=== PATIENT | female | born 1985 | race Caucasian/White ===

== ENCOUNTER 2017-02-08 12:07 | Emergency (ER) | payer SELFPAY ==
[~2017-02-08] VITALS: Ht 172.7 cm; Wt 122.7 kg
[2017-02-08] MEDS ORDERED: SUBOXONE 8 MG-1 EAC1 SL (12:25)
== END 2017-02-08 12:29 | disposition home or self-care (01) ==
LOC: ED 12:07
DX: Z00.8 Encounter for other general examination (principal)

== ENCOUNTER 2017-04-20 11:50 | Emergency (ER) | payer OTHER ==
[~2017-04-20] VITALS: Ht 172.7 cm; Wt 122.7 kg
[~2017-04-20 11:50] MED LIST: SUBOXONE 8 MG-1 EAC1 SL
[2017-04-20] MEDS ORDERED: CLONIDINE HCL0.1 MG PO (11:59)
[2017-04-20] MEDS ORDERED: KEFLEX500 MG PO (14:04)
== END 2017-04-20 14:54 | disposition home or self-care (01) ==
LOC: ED 11:50
PROC: 0H99XZZ Drainage of Perineum Skin, External Approach (ICD-10-PCS; principal; 2017-04-20)
DX: L02.215 Cutaneous abscess of perineum (principal); F17.200 Nicotine dependence, unspecified, uncomplicated; Z79.899 Other long term (current) drug therapy
CPT/HCPCS: 10060; 80053; 85025; 96361; 96374; 96375; 99152; 99283; J0690; J1170; J2704; J7030

== ENCOUNTER 2017-06-18 16:14 | Emergency (ER) | payer OTHER ==
[~2017-06-18] VITALS: Ht 172.7 cm; Wt 122.0 kg
[~2017-06-18 16:14] MED LIST changes: +CLONIDINE HCL0.1 MG PO; +KEFLEX500 MG PO
== END 2017-06-18 18:24 | disposition home or self-care (01) ==
LOC: ED 16:14
DX: R10.30 Lower abdominal pain, unspecified (principal); F17.200 Nicotine dependence, unspecified, uncomplicated; Z79.891 Long term (current) use of opiate analgesic; Z90.49 Acquired absence of other specified parts of digestive tract
CPT/HCPCS: 74177; 80053; 81001; 83690; 84703; 85025; 96374; 96375; 99284; J1885; J2270; J2405; J7030; Q9967

== ENCOUNTER 2018-09-12 10:16 | Emergency (ER) | payer OTHER ==
[~2018-09-12] VITALS: Ht 172.7 cm; Wt 121.6 kg
[~2018-09-12 10:16] MED LIST changes: +SUBOXONE 4 MG-1 EACH SL
--- OUTSIDE RECORDS SUMMARY | 2018-09-12 10:18 | XMS ---
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 E.Sergio VISIT COUNT (12 MO.) 3 BRYAN Jason TOTAL 3 NOTE: Visits indicate total known visits. 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
== END 2018-09-12 12:51 | disposition home or self-care (01) ==
LOC: ED 10:16
DX: G43.909 Migraine, unspecified, not intractable, without status migrainosus (principal); Z87.891 Personal history of nicotine dependence; Z79.899 Other long term (current) drug therapy
CPT/HCPCS: 96361; 96374; 96375; 99283-25; J0780; J1100; J1200; J1885; J7030

== ENCOUNTER 2018-10-02 17:38 | Emergency (ER) | payer OTHER ==
[~2018-10-02] VITALS: Ht 172.7 cm; Wt 121.6 kg
--- OUTSIDE RECORDS SUMMARY | ~2018-10-02 | XMS | Encounter Summary ---
Demographics + + + | Address | [address] | | | [place] [address] | + + + | Home Phone | | + + + | Preferred Language | Unknown | + + + | Marital Status | Unknown | + + + | Jew Affiliation | Unknown | + + + | Race | Unknown | + + + | Ethnic Group | Unknown | + + + Author + + + | Author | [facility] | | | and [place] | + + + | Organization | [facility] | | | and [place] | + + + | Address | Unknown | + + + | Phone | Unavailable | + + + Care Team Providers + +------+ + | Care Type Disk Quality Control Supervisor Name | Role | Phone | + [...] + + | 08/30/ | Telephone | [facility] | [facility], | Records Request | | 2018 | | GASTROENTEROLOGY | YUSRA Cooper [address] | | | | | [address] [facility] | [place] | | | | | [address] [place], [place] | [place] | | | | | [address] | [address] | | | | | [phone] | | | +--------+ + + + [...] + +---------+ + | Alcohol Use | Drinks/We | oz/Week | Comments | | | ek | | | + + +---------+ + | No [...]
--- OUTSIDE RECORDS SUMMARY | ~2018-10-02 | XMS | Encounter Summary ---
Demographics + + + | Address | [address] | | | [place] [address] | + + + | Home Phone | | + + + | Preferred Language | Unknown | + + + | Marital Status | Unknown | + + + | Jew Affiliation | Unknown | + + + | Race | Unknown | + + + | Ethnic Group | Unknown | + + + Author + + + | Author | [facility] | | | and [place] | + + + | Organization | [facility] | | | and [place] | + + + | Address | Unknown | + + + | Phone | Unavailable | + + + Care Team Providers + +------+ + | Care Women'S Ministry Director Name | Role | Phone | + +------+ + | Rachel Morgan MD | PCP | | + +------+ + Encounter Details +--------+ + + + + | Date | Type | Department | Care Team | Description | +--------+ + + + + | 08/12/ | Abstract | [facility] | Macaren[place], | | | 2018 | | GASTROENTEROLOGY | MD [address] | | | | | [address] [facility] | [address] | | | | | [address] [place], [place] | [place] [address] | | | | | [address] | | | | | | [phone] | | | +--------+ + + + + Social History + +-------+ +--------+------+ | Tobacco Use | Types | Packs/Day | Years | Date | | | | | Used | | + +-------+ +--------+------+ | Current Every Day | | 0.5 | | | | Smoker | | | | | + +-------+ +--------+------+ + + | Comments: quit in 2011 currently vapes with nicotine trying to quit [...]
--- OUTSIDE RECORDS SUMMARY | ~2018-10-02 | XMS | Encounter Summary ---
Demographics + + + | Address | [address] | | | [place] [address] | + + + | Home Phone | | + + + | Preferred Language | Unknown | + + + | Marital Status | Unknown | + + + | Taoist Affiliation | Unknown | + + + | Race | Unknown | + + + | Ethnic Group | Unknown | + + + Author + + + | Author | [facility] | | | and [place] | + + + | Organization | [facility] | | | and [place] | + + + | Address | Unknown | + + + | Phone | Unavailable | + + + Care Team Providers + +------+ + | Care Biofuels Research Scientist Name | Role | Phone | + +------+ + | Rachel Morgan MD | PCP | | + +------+ + Encounter Details +--------+ + + + + | Date | Type | Department | Care Team | Description | +--------+ + + + + | 07/27/ | Documentati | [facility] | Joseluis Zamudio | | | 2018 | on | GASTROENTEROLOGY | MD Haroon [address] | | | | | [address] [facility] | [address] [facility] | | | | | [address] [place] | [place] [address] | | | | | [address] | [phone] | | | | | [phone] | | | +--------+ + + + [...]
--- OUTSIDE RECORDS SUMMARY | ~2018-10-02 | XMS | Encounter Summary ---
Demographics + + + | Address | [address] | | | [place] [address] | + + + | Home Phone | | + + + | Preferred Language | Unknown | + + + | Marital Status | Unknown | + + + | Religion Affiliation | Unknown | + + + | Race | Unknown | + + + | Ethnic Group | Unknown | + + + Author + + + | Author | [facility] | | | and [place] | + + + | Organization | and [facility] | | | and [place] | + + + | Address | Unknown | + + + | Phone | Unavailable | + + + Care Team Providers + +------+ + | Care Waxer Operator Name | Role | Phone | + +------+ + | Rachel Morgan MD | PCP | | + +------+ + Encounter Details +--------+ + + + + | Date | Type | Department | Care Team | Description | +--------+ + + + + | 07/27/ | Documentati | [facility] | Joseluis Zamudio | | | 2018 | on | GASTROENTEROLOGY | MD Haroon [address] | | | | | [address] [place] | [address] [facility] | | | | | [address] [place] | [place] [address] | | | | | [address] | [phone] | | | | | [phone] | | | +--------+ + + + [...]
--- OUTSIDE RECORDS SUMMARY | ~2018-10-02 | XMS | Encounter Summary ---
Demographics + + + | Address | [address] | | | [place] [address] | + + + | Home Phone | | + + + | Preferred Language | Unknown | + + + | Marital Status | Unknown | + + + | Jainism Affiliation | Unknown | + + + | Race | Unknown | + + + | Ethnic Group | Unknown | + + + Author + + + | Author | [facility] | | | and [place] | + + + | Organization | [facility] | | | and [place] | + + + | Address | Unknown | + + + | Phone | Unavailable | + + + Care Team Providers + +------+ + | Care Shelter Advocate Name | Role | Phone | + +------+ + | Rachel Morgan MD | PCP | | + +------+ + Encounter Details +--------+ + + + + | Date | Type | Department | Care Team | Description | +--------+ + + + + | 08/12/ | Abstract | [facility] | Macarena, | | | 2018 | | GASTROENTEROLOGY | MD [address] | | | | | [address] [facility] | [address] | | | | | [address] [place], [place] | [place] [address] | | | | | [address] | | | | | | [phone] | | | +--------+ + + + [...]
--- OUTSIDE RECORDS SUMMARY | ~2018-10-02 | XMS | Encounter Summary ---
Demographics + + + | Address | [address] | | | [place] [address] | + + + | Home Phone | | + + + | Preferred Language | Unknown | + + + | Marital Status | Unknown | + + + | Mosque Affiliation | Unknown | + + + | Race | Unknown | + + + | Ethnic Group | Unknown | + + + Author + + + | Author | [facility] | | | and [place] | + + + | Organization | [facility] | | | and [place] | + + + | Address | Unknown | + + + | Phone | Unavailable | + + + Care Team Providers + +------+ + | Care Polymer Materials Consultant Name | Role | Phone | + [...] + + | 08/30/ | Telephone | [facility] | [facility], | Records Request | | 2018 | | GASTROENTEROLOGY | YUSRA Cooper [address] | | | | | [address] [facility] | [place] | | | | | [address] [place], [place] | [place] | | | | | [address] | [id number] | | | | | [phone] | | | +--------+ + + + [...]
--- OUTSIDE RECORDS SUMMARY | ~2018-10-02 | XMS | Clinical Summary ---
Demographics + + + | Address | [address] | | | [place] [address] | + + + | Home Phone | | + + + | Preferred Language | Unknown | + + + | Marital Status | Unknown | + + + | Confucianism Affiliation | Unknown | + + + | Race | Unknown | + + + | Ethnic Group | Unknown | + + + Author + + + | Author | [facility] | | | and [place] | + + + | Organization | [facility] | | | and [place] | + + + | Address | Unknown | + + + | Phone | Unavailable | + + + Care Team Providers + +------+ + | Care Linen Worker Name | Role | Phone | + +------+ + | Rachel Morgan MD | PP | | + +------+ + Allergies No [...] + +---------+------+------+-------+ Active Problems Not on file Encounters +--------+ + + + + | Date | Type | Specialty | Care Team | Description | +--------+ + + + + | 08/30/ | Telephone | | Camilo Sotelo Request | | 2018 | | | YUSRA Cooper | | +--------+ + + + + | 08/12/ | Abstract | | Macarena, | | | 2018 | | | MD Tico | | +--------+ + + + + | 07/27/ | Documentati | | Joseluis Zamudio | | | 2018 | on | | MD Haroon | | +--------+ + + + + from Last 3 Months Family History + + +------+ + | [...] recent travel history available. | + + Plan of Treatment + + + + + | Health Maintenance | Due Date | Last Done | Comments | + + + + + | Vaccine: | | | | | Dtap/Tdap/Td (1 - | 2 | | | | Tdap) | | | | + + + + + | Vaccine: | | | | | Pneumococcal 19-64 | 2 | | | | (PPSV23 only) Medium | | | | | Risk (1 of 1 - | | | | | PPSV23) | | | | + + + + + | Cervical Cancer | | | | | Screening (Pap) | 3 | | | + + + + + | Vaccine: Influenza | | | | | (Season Ended) | 9 | | | + + [...] | [employer] | [employer] | [id number] | | [phone] | | Med[employer] | [...] Person | Self | [birth year] | [address] | | | katie/Luca | | 1984 | [phone] | [place] | | | raji | | | [address] (Home) | [address] | + +--------+ +--------+ + + Advance Directives Patient has advance care planning documents on file. For more information, please contact:[facility] [place] [address]"
--- OUTSIDE RECORDS SUMMARY | ~2018-10-02 | XMS | Clinical Summary ---
Demographics + + + | Address | [address] | | | [place] [address] | + + + | Home Phone | | + + + | Preferred Language | Unknown | + + + | Marital Status | Unknown | + + + | Worship Affiliation | Unknown | + + + | Race | Unknown | + + + | Ethnic Group | Unknown | + + + Author + + + | Author | [facility] | | | and [place] | + + + | Organization | [facility] | | | and [place] | + + + | Address | Unknown | + + + | Phone | Unavailable | + + + Care Team Providers + +------+ + | Care Local Tanker Truck Driver Name | Role | Phone | + [...] | [employer] | [employer] | [id number] | | [phone] | | [employer] | [...] raji | | | 8 (Home) | [address] | + +--------+ +--------+ + + Advance Directives Patient has advance care planning documents on file. For more information, please contact:[facility] and [facility] [place] [address]"
--- OUTSIDE RECORDS SUMMARY | 2018-10-02 17:42 | XMS ---
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 Events No recent Security Events currently on file CRITERIA MET - [facility] - Has Care Guidelines - PDMP - [facility] - 2 Visits in 30 Days CARE PROVIDERS MARYLIN MOLINA Student in an Organized Health Care 09/13/2018-Current Education/Training Program PHONE: [phone] MARK BRAVO Primary Care Current PHONE: Unknown [facility] Date: 09/13/2018 Care Coordination: Currently engaged in mental health services with [facility].\T\nbsp; Please contact [facility] with mental health concerns.\T\nbsp; Ericka: [phone]\T\ nbsp; Dahiana: [phone]. Care History Medical/Surgical 09/13/2018 [facility] - Patient is currently established with [facility]. If patient is seen in the ED during business hours. Please contact CHWs at [facility]. Care Recommendation: This patient has had 5 or more Emergency Department visits in the last 12 months.\T\nbsp; Patient requires education on the scope and purpose of the ED as an acute care provider not a Primary Care Provider and should not be utilized for chronic conditions.\T\nbsp; These are guidelines and the provider should exercise clinical judgment when providing care. E.D. VISIT COUNT (12 MO.) 3 BRYAN Jason TOTAL 3 NOTE: Visits indicate total known visits. 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
[2018-10-02] MEDS ORDERED: ZYPREXA ZYDIS10 MG PO (18:22)
== END 2018-10-02 19:52 | disposition home or self-care (01) ==
LOC: ED 17:38
DX: F41.9 Anxiety disorder, unspecified (principal); F17.200 Nicotine dependence, unspecified, uncomplicated
CPT/HCPCS: 99283

== ENCOUNTER 2019-04-11 09:39 | Emergency (ER) | payer OTHER ==
[~2019-04-11] VITALS: Ht 152.4 cm; Wt 121.6 kg
--- OUTSIDE RECORDS SUMMARY | ~2019-04-11 | XMS | Encounter Summary ---
Demographics + + + | Address | [address] | | | [place] [address] | + + + | Home Phone | | + + + | Preferred Language | Unknown | + + + | Marital Status | Unknown | + + + | Yazidi Affiliation | Unknown | + + + | Race | Unknown | + + + | Ethnic Group | Unknown | + + + Author + + + | Author | [facility] | | | and [place] | + + + | Organization | [facility] | | | and [place] | + + + | Address | Unknown | + + + | Phone | Unavailable | + + + Care Team Providers + +------+ + | Care Forester Silviculture Name | Role | Phone | + +------+ + | Rachel Morgan MD | PCP | | + +------+ + Encounter Details +--------+ + + + + | Date | Type | Department | Care Team | Description | +--------+ + + + + | 07/27/ | Documentati | [facility] | Joseluis Zamudio | | | 2018 | on | GASTROENTEROLOGY | MD [address] | | | | | [address] [facility] | [address] [facility] | | | | | [address] [place] | [place] [address] | | | | | [address] | [phone] | | | | | [phone] | | | +--------+ + + + + Social History + +-------+ +--------+------+ | Tobacco Use | Types | Packs/Day | Years | Date | | | | | Used | | + +-------+ +--------+------+ | Never Assessed | | | | | + +-------+ +--------+------+ + + + | Sex Assigned at | Date Recorded | | | | + + + | Not on file | | + + + + + + + | Job Start Date | Occupation | Industry | + + + + | Not on file | Not on file | Not on file | + + + + + + + + | Travel History | Travel Start | Travel End | + + + + + + | No recent travel history available. | + + documented as of this encounter Plan of Treatment Not on filedocumented as of this encounter Visit Diagnoses Not on filedocumented in this encounter"
--- OUTSIDE RECORDS SUMMARY | ~2019-04-11 | XMS | Encounter Summary ---
Demographics + + + | Address | [address] | | | [place] [address] | + + + | Home Phone | | + + + | Preferred Language | Unknown | + + + | Marital Status | Unknown | + + + | Restorationist Affiliation | Unknown | + + + | Race | Unknown | + + + | Ethnic Group | Unknown | + + + Author + + + | Author | [facility] | | | and [place] | + + + | Organization | [facility] | | | and [place] | + + + | Address | Unknown | + + + | Phone | Unavailable | + + + Care Team Providers + +------+ + | Care Small Business Banking Officer Name | Role | Phone | + +------+ + | Rachel Morgan MD | PCP | | + +------+ + Reason for Visit + + + | Reason | Comments | + + + | Records Request | | + + + Encounter Details +--------+ + + + + | Date | Type | Department | Care Team | Description | +--------+ + + + + | 08/30/ | Telephone | [facility] | [facility], | Records Request | | 2018 | | GASTROENTEROLOGY | YUSRA Cooper [address] | | | | | [address] [facility] | [place], [address] | | | | | [address] [place], [place] | [place] | | | | | [address] | [address] | | | | | [phone] | | | +--------+ + + + + Social History + +-------+ +--------+------+ | Tobacco Use | Types | Packs/Day | Years | Date | | | | | Used | | + +-------+ +--------+------+ | Current Every Day | | 0.5 | | | | Smoker | | | | | + +-------+ +--------+------+ + + | Comments: quit in 2012 currently vapes with nicotine trying to quit that as well. | + + + + +---------+ + | Alcohol Use | Drinks/Week | oz/Week | Comments | + + +---------+ + | No | | | | + + +---------+ + + + + | Sex Assigned at [...]
--- OUTSIDE RECORDS SUMMARY | ~2019-04-11 | XMS | Encounter Summary ---
Demographics + + + | Address | [address] | | | [place] [address] | + + + | Home Phone | | + + + | Preferred Language | Unknown | + + + | Marital Status | Unknown | + + + | Druze Affiliation | Unknown | + + + | Race | Unknown | + + + | Ethnic Group | Unknown | + + + Author + + + | Author | [facility] | | | and [place] | + + + | Organization | [facility] | | | and [place] | + + + | Address | Unknown | + + + | Phone | Unavailable | + + + Care Team Providers + +------+ + | Care Dipper And Baker Name | Role | Phone | + +------+ + | Rachel Morgan MD | PCP | | + +------+ + Encounter Details +--------+ + + + + | Date | Type | Department | Care Team | Description | +--------+ + + + + | 08/12/ | Abstract | [facility] | Macarena, | | | 2018 | | GASTROENTEROLOGY | MD [address] | | | | | [address] [facility] | [address] | | | | | [address] [place], [place] | [place] [address] | | | | | [address] | | | | | | [phone] | | | +--------+ + + + [...]
--- OUTSIDE RECORDS SUMMARY | ~2019-04-11 | XMS | Clinical Summary ---
Demographics + + + | Address | [address] | | | [place] [address] | + + + | Home Phone | | + + + | Preferred Language | Unknown | + + + | Marital Status | Unknown | + + + | Latter Day Affiliation | Unknown | + + + | Race | Unknown | + + + | Ethnic Group | Unknown | + + + Author + + + | Author | [facility] | | | and [place] | + + + | Organization | [facility] | | | and [place] | + + + | Address | Unknown | + + + | Phone | Unavailable | + + + Care Team Providers + +------+ + | Care Crm Architect Name | Role | Phone | + +------+ + | Rachel Morgan MD | PCP | | + +------+ + Allergies No Known Allergies Medications + + + +---------+------+------+-------+ | Medication | Sig | Dispensed | Refills | Star | End | Statu | | | | | | t | Date | s | | | | | | Date | | | + + + +---------+------+------+-------+ | | Place 1 tablet under | | 0 | | | Activ | | buprenorphine-naloxo | the tongue every 24 | | | | | e | | ne (SUBOXONE) 8-2 mg | hours. | | | | | | | SL tablet | | | | | | | + + + +---------+------+------+-------+ | LORazepam (ATIVAN) | Take 1 mg by mouth 3 | | 0 | | | Activ | | 1 mg tablet | times daily. | | | | | e | + + + +---------+------+------+-------+ Active Problems Not on file Family History + + +------+ + | Medical History | Relation | Name | Comments | + + +------+ + | No known problems | Brother | | | + + +------+ + | No known problems | Brother | | | + + +------+ + | No known problems | Brother | | | + + +------+ + | No known problems | Brother | | | + + +------+ + | No known problems | Father | | | + + +------+ + | Heart attack | Mother | | | + + +------+ + | Heart disease | Mother | | | + + +------+ + | Hypertension | Mother | | | + + +------+ + | No known problems | Sister | | | + + +------+ + | No known problems | Sister | | | + + +------+ + | No known problems | Son | | | + + +------+ + | No known problems | Son | | | + + +------+ + + +------+--------+ + | Relation | Name | Status | Comments | + +------+--------+ + | Brother | | Alive | | + +------+--------+ + | Brother | | Alive | | + +------+--------+ + | Brother | | Alive | | + +------+--------+ + | Brother | | Alive | | + +------+--------+ + | Father | | Alive | | + +------+--------+ + | Mother | | Alive | | + +------+--------+ + | Sister | | Alive | | + +------+--------+ + | Sister | | Alive | | + +------+--------+ + | Son | | Alive | | + +------+--------+ + | Son | | Alive | | + +------+--------+ + Social History + +-------+ +--------+------+ | [...] recent travel history available. | + + Last Filed Vital Signs Not on file Plan of Treatment + + + + + | Health Maintenance | Due Date | Last Done | Comments | + + + + + | Vaccine: | | | | | Pneumococcal 19-64 | 9 | | | | (1 of 1 - PPSV23) | | | | + + + + + | Vaccine: | | | | | Dtap/Tdap/Td (1 - | 2 | | | | Tdap) | | | | + + + + + | Cervical Cancer | | | | | Screening (Pap) | 3 | | | + + + + + | Vaccine: Influenza | | | | | (#1) | 9 | | | + + + + + Results Not on filefrom Last 3 Months Insurance + +--------+ +--------+ +---------+--------+ | Payer | Benefi | Subscriber | Effect | Phone | Address | Type | | | t Plan | ID | [place] | | | | | | / | | Dates | | | | | | Group | | | | | | + +--------+ +--------+ +---------+--------+ | [employer] | [employer] | [id number] | | [phone] | | Medica | | MEDICAID HMO | HEALTH | | 019-Pr | 1 | | id | | | MDCD | | esent | | | | | | HMO [place] | | | | | | + +--------+ +--------+ +---------+--------+ + +--------+ +--------+ + + | Guarantor Name | Accoun | Relation to | Date | Phone | Billing Address | | | t Type | Patient | of | | | | | | | | | | + +--------+ +--------+ + + | Jazmine Pavon | Person | Self [birth year] | [address] | | | al/Fam | | 1985 | [phone] | [place] | | | raji | | | [address] (Home) | [address] | + +--------+ +--------+ + + Advance Directives + + + + + | Type | Date Recorded | Patient | Explanation | | | | Academic Support Center Director | | + + + + + | Power of | | | | | Aerospace Stress Engineer | | | | + + + + + | Advance | | | | | Directive | | | | + + + + +"
--- OUTSIDE RECORDS SUMMARY | ~2019-04-11 | XMS | Encounter Summary ---
Demographics + + + | Address | [address] | | | [place] [address] | + + + | Home Phone | | + + + | Preferred Language | Unknown | + + + | Marital Status | Unknown | + + + | Zoroastrian Affiliation | Unknown | + + + | Race | Unknown | + + + | Ethnic Group | Unknown | + + + Author + + + | Author | [facility] | | | and [place] | + + + | Organization | [facility] | | | and [place] | + + + | Address | Unknown | + + + | Phone | Unavailable | + + + Care Team Providers + +------+ + | Care Negative Spotter Name | Role | Phone | + +------+ + | Rachel Morgan MD | PCP | | + +------+ + Encounter Details +--------+ + + + + | Date | Type | Department | Care Team | Description | +--------+ + + + + | 08/12/ | Abstract | [facility] | [place], | | | 2018 | | GASTROENTEROLOGY | MD [address] | | | | | [address] [facility] | Leroy SH[place]LEY | | | | | [address] [place], [place] | [place] [address] | | | | | [address] | | | | | | [phone] | | | +--------+ + + + [...]
--- OUTSIDE RECORDS SUMMARY | ~2019-04-11 | XMS | Clinical Summary ---
Demographics + + + | Address | [address] | | | [place] [address] | + + + | Home Phone | | + + + | Preferred Language | Unknown | + + + | Marital Status | Unknown | + + + | Judaism Affiliation | Unknown | + + + | Race | Unknown | + + + | Ethnic Group | Unknown | + + + Author + + + | Author | [facility] | | | and [place] | + + + | Organization | [facility] | | | and [place] | + + + | Address | Unknown | + + + | Phone | Unavailable | + + + Care Team Providers + +------+ + | Care Napper Fixer Name | Role | Phone | + [...] | [employer] | [employer] | [id number] | | [phone] | | Medica | [...] [place]ji | | | 8 (Home) | [address] | + +--------+ +--------+ + + Advance Directives + + + + + | Type | Date Recorded | Patient | Explanation | | | | Nutritional Assistant | | + + + + + | Power of | | | | | Performance Improvement Consultant | | | | + + + + + | Advance | | | | | Directive | | | | + + + + +"
--- OUTSIDE RECORDS SUMMARY | ~2019-04-11 | XMS | Encounter Summary ---
Demographics + + + | Address | [address] | | | [place] [address] | + + + | Home Phone | | + + + | Preferred Language | Unknown | + + + | Marital Status | Unknown | + + + | Roman Catholic Affiliation | Unknown | + + + | Race | Unknown | + + + | Ethnic Group | Unknown | + + + Author + + + | Author | [facility] | | | and [place] | + + + | Organization | [facility] | | | and [place] | + + + | Address | Unknown | + + + | Phone | Unavailable | + + + Care Team Providers + +------+ + | Care Trouble Clerk Name | Role | Phone | + +------+ + | Rachel Morgan MD | PCP | | + +------+ + Encounter Details +--------+ + + + + | Date | Type | Department | Care Team | Description | +--------+ + + + + | 07/27/ | Documentati | [facility] | Joseluis Zamudio | | | 2018 | on | GASTROENTEROLOGY | MD Haroon [address] | | | | | [address] [facility] | [facility] | | | | | [address] [place] | [place] [address] | | | | | [address] | [phone] | | | | | [phone] | | | +--------+ + + + [...]
--- OUTSIDE RECORDS SUMMARY | ~2019-04-11 | XMS | Encounter Summary ---
Demographics + + + | Address | [address] | | | [place] [address] | + + + | Home Phone | | + + + | Preferred Language | Unknown | + + + | Marital Status | Unknown | + + + | Yarsanism Affiliation | Unknown | + + + | Race | Unknown | + + + | Ethnic Group | Unknown | + + + Author + + + | Author | [facility] | | | and [place] | + + + | Organization | [facility] | | | and [place] | + + + | Address | Unknown | + + + | Phone | Unavailable | + + + Care Team Providers + +------+ + | Care Assembler Unit Name | Role | Phone | + [...] + + | 08/30/ | Telephone | [facility] | [facility], | Records Request | | 2018 | | GASTROENTEROLOGY | YUSRA Cooper [address] | | | | | [address] [facility] [facility] | [place], [address] | | | | | [address] [place], [place] | [place] | | | | | [address] | [address] | | | | | [phone] | | | +--------+ + + + [...]
[~2019-04-11 09:39] MED LIST changes: +ZYPREXA ZYDIS10 MG PO
--- OUTSIDE RECORDS SUMMARY | 2019-04-11 09:42 | XMS ---
PreManage Notification: TR PANG Security Triage Clinician Events No recent Security Events currently on file CRITERIA MET - [facility] - Has Care Guidelines - PDMP CARE PROVIDERS MARYLIN MOLINA [facility] 09/13/2018-Current PHONE: [phone] MARK BRAVO Primary Care Current PHONE: Unknown Guidelines Source: [facility] Guidelines Date: 09/13/2018 Care Coordination: Currently engaged in mental health services with [facility].\T\nbsp; Please contact [facility] with mental health concerns.\T\nbsp; Ericka: [phone]\T\ nbsp; Dahiana: [phone]. Care History Medical/Surgical 09/13/2018 [facility] - Patient is currently established with [facility]. If patient is seen in the ED during business hours. Please contact CHWs at [facility]. Care Recommendation: This patient has had 5 or more Emergency Department visits in the last 12 months.\T\nbsp; Patient requires education on the scope and purpose of the ED as an acute care provider not a Primary Care Provider and should not be utilized for chronic conditions.\T\nbsp; These are guidelines and the provider should exercise clinical judgment when providing care. EThangD. VISIT COUNT (12 MO.) 5 BRYAN Jason TOTAL 5 NOTE: Visits indicate total known visits. 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 [facility] [place] TYPE: Emergency COMPLAINT: - VOMITING,HEAD PAIN DIAGNOSES: - Nicotine dependence, unspecified, uncomplicated - Anxiety disorder, unspecified - Headache 09/12/2018 10:16 [facility] [place] TYPE: Emergency COMPLAINT: - HEADACHE, VOMITING DIAGNOSES: - Other fci (current) drug therapy - Personal history of nicotine dependence - Migraine, unsp, not intractable, without status migrainosus - Headache INPATIENT VISIT TRACKING (12 MO.) No inpatient visits to display in this time frame [email or web address]
[2019-04-11] MEDS ORDERED: ADDERALL 15 MG15 MG PO (09:55)
--- NOTE | 2019-04-11 20:23 | EKG ---
[facility] [address] [facility] [place], [place] [address] Signed Normal sinus rhythm Possible Inferior infarct , age undetermined Abnormal ECG When compared with ECG of 21-SEP-2017 14:58, No significant change was found Confirmed by ZULAY POLLARD MD ([id number]) on 04/11/2019 8:23:21 PM Electronically Signed By: ZULAY POLLARD MD 04/11/192022 PATIENT NAME: TR PANG Electrocardiogram DATE OF : 81 PHYSICIAN: ZULAY POLLARD MD REPORT #: [id number] REPORT IS CONFIDENTIAL AND NOT TO BE RELEASED WITHOUT AUTHORIZATION
== END 2019-04-11 10:15 | disposition left against medical advice (07) ==
LOC: ED 09:39
DX: F41.9 Anxiety disorder, unspecified (principal); G43.909 Migraine, unspecified, not intractable, without status migrainosus; F32.9 Major depressive disorder, single episode, unspecified; Z87.891 Personal history of nicotine dependence; Z79.899 Other long term (current) drug therapy
CPT/HCPCS: 93005; 93010; 99285-25

== ENCOUNTER 2019-07-31 18:03 | Emergency (ER) | payer OTHER ==
[~2019-07-31] VITALS: Ht 172.7 cm; Wt 121.6 kg
[~2019-07-31 18:03] MED LIST changes: +ADDERALL 15 MG15 MG PO
[2019-07-31] MEDS ORDERED: CYCLOBENZAPRINE10 MG PO (21:38)
== END 2019-07-31 21:52 | disposition home or self-care (01) ==
LOC: ED 18:03
DX: R10.9 Unspecified abdominal pain (principal); G43.909 Migraine, unspecified, not intractable, without status migrainosus; F41.9 Anxiety disorder, unspecified; F32.9 Major depressive disorder, single episode, unspecified; Z79.899 Other long term (current) drug therapy
CPT/HCPCS: 74176; 80053; 81001; 84703; 85025; 96374; 96375; 99284-25; J1170; J1885; J2405

== ENCOUNTER 2020-05-25 15:16 | Emergency (ER) | payer OTHER ==
[~2020-05-25] VITALS: Ht 172.7 cm; Wt 127.0 kg
[~2020-05-25 15:16] MED LIST changes: +CYCLOBENZAPRINE10 MG PO
--- OUTSIDE RECORDS SUMMARY | 2020-05-25 15:18 | XMS ---
PreManage Notification: TR PANG Security Functional Tester Typewriters Events 1 event(s) in the past 18 months Most recent security events: Elopement at [facility] 04/11/2019 09:40 - Other Details: PATIENT LEFT AMA CRITERIA MET - Group Notification - PDMP CARE PROVIDERS DOMITILA FLORES [facility] 04/12/2019-Current PHONE: [phone] DOMITILA FLORES Dentist: Automation And Control Engineer 04/12/2019-Current PHONE: [phone] MARYLIN MOLINA [facility] 09/13/2018-Current PHONE: [phone] Care Guidelines exist for the following facilities: [facility] ( 09/13/2018 ) [place] VISIT COUNT (12 MO.) 2 [facility] TOTAL 2 NOTE: Visits indicate total known visits. ED/UCC VISIT TRACKING (12 MO.) 05/25/2020 15:[address] [place] TYPE: Emergency COMPLAINT: - N/V/D 07/31/2019 18:[address] [place] TYPE: Emergency COMPLAINT: - BACK PAIN, NON INJ DIAGNOSES: - Major depressive disorder, single episode, unspecified - Other nursing home (current) drug therapy - Anxiety disorder, unspecified - Unspecified abdominal pain - Migraine, unspecified, not intractable, without status migrainosus INPATIENT VISIT TRACKING (12 MO.) No inpatient visits to display in this time frame [email or web address]
[2020-05-25] MEDS ORDERED: LOMOTIL TABLET1 EACH PO (18:54)
[2020-05-25] MEDS ORDERED: BACTRIM DS TAB1 EACH PO (18:54)
[2020-05-25] MEDS ORDERED: ONDANSETRON ODT8 MG PO (18:57)
== END 2020-05-25 19:23 | disposition home or self-care (01) ==
LOC: ED 15:16
DX: K52.9 Noninfective gastroenteritis and colitis, unspecified (principal); G43.909 Migraine, unspecified, not intractable, without status migrainosus; F41.9 Anxiety disorder, unspecified; F32.9 Major depressive disorder, single episode, unspecified; F17.200 Nicotine dependence, unspecified, uncomplicated; Z79.899 Other long term (current) drug therapy
CPT/HCPCS: 80053; 81001; 83735; 84703; 85025; 96374; 96375; 99284-25; J1790; J2405; J7030; J7040

== ENCOUNTER 2021-01-04 18:56 | Emergency (ER) | payer OTHER ==
[~2021-01-04] VITALS: Ht 172.7 cm; Wt 122.5 kg
[~2021-01-04 18:56] MED LIST changes: +BACTRIM DS TAB1 EACH PO; +LOMOTIL TABLET1 EACH PO; +ONDANSETRON ODT8 MG PO
--- OUTSIDE RECORDS SUMMARY | 2021-01-04 19:00 | XMS ---
PreManage Notification: TR PANG Security Geospatial Imagery Intelligence Analyst Events No recent Security Events currently on file CRITERIA MET - Group Notification - PDMP CARE PROVIDERS SANDRA [facility] 04/12/2019-Current PHONE: [phone] DOMITILA FLORES Dentist: Sodder 04/12/2019-Current PHONE: [phone] MARYLIN MOLINA [facility] 09/13/2018-Current PHONE: [phone] Care Guidelines exist for the following facilities: [facility] ( 07/16/2020 ) [place] VISIT COUNT (12 MO.) 3 BRYAN Jason TOTAL 3 NOTE: Visits indicate total known visits. ED/UCC VISIT TRACKING (12 MO.) 01/04/2021 18:[address] [place] TYPE: Emergency COMPLAINT: - L ARM PAIN/INJURY 11/19/2020 12:[address] [place] TYPE: Emergency COMPLAINT: - R WRIST INJURY 05/25/2020 15:[address] [place] TYPE: Emergency COMPLAINT: - N/V/D DIAGNOSES: - Migraine, unspecified, not intractable, without status migrainosus - Noninfective gastroenteritis and colitis, unspecified - Major depressive disorder, single episode, unspecified - Anxiety disorder, unspecified - Other termite renewal inspector (current) drug therapy - Nicotine dependence, unspecified, uncomplicated - Diarrhea, unspecified INPATIENT VISIT TRACKING (12 MO.) No inpatient visits to display in this time frame [email or web address]
[2021-01-04] MEDS ORDERED: BUPRENORPHIN-N1 EACH SL (19:37)
[2021-01-04] MEDS ORDERED: DICLOFENAC SODI75 MG PO (22:22)
[2021-01-04] MEDS ORDERED: ULTRAM50 MG PO (22:22)
== END 2021-01-04 22:50 | disposition home or self-care (01) ==
LOC: ED 18:56
DX: S63.501A Unspecified sprain of right wrist, initial encounter (principal); X50.9XXA Other and unspecified overexertion or strenuous movements or postures, initial encounter; G43.909 Migraine, unspecified, not intractable, without status migrainosus; Z87.891 Personal history of nicotine dependence; Z79.899 Other long term (current) drug therapy
CPT/HCPCS: 73110; 99283-25; A9270

== ENCOUNTER 2021-11-17 12:12 | Emergency (ER) | payer OTHER ==
[~2021-11-17] VITALS: Ht 172.7 cm; Wt 122.5 kg
[~2021-11-17 12:12] MED LIST changes: +BUPRENORPHIN-N1 EACH SL; +DICLOFENAC SODI75 MG PO; +ULTRAM50 MG PO
--- OUTSIDE RECORDS SUMMARY | 2021-11-17 12:14 | XMS ---
PreManage Notification: TR PANG Security Hydraulic Jack Operator Events 1 event(s) in the past 18 months Most recent security events: Elopement at [facility] 02/25/2021 16:40 - Other Details: PATIENT LWBS CRITERIA MET - Group Notification - PDMP CARE PROVIDERS DOMITILA FLORES [facility] 04/12/2019-Current PHONE: [phone] DOMITILA FLORES Dentist: Loader Demolder 04/12/2019-Current PHONE: [phone] MARYLIN MOLINA [facility] 09/13/2018-Current PHONE: [phone] Care Guidelines exist for the following facilities: [facility] ( 07/16/2020 ) [place] VISIT COUNT (12 MO.) 4 BRY[facility] Jason TOTAL 4 NOTE: Visits indicate total known visits. ED/UCC VISIT TRACKING (12 MO.) 11/17/2021 12:[address] [place] TYPE: Emergency COMPLAINT: - DENTAL PROBLEM 02/25/2021 16:[address] [place] TYPE: Emergency COMPLAINT: - RT ARM INJURY 01/04/2021 18:[address] [place] TYPE: Emergency COMPLAINT: - L ARM PAIN/INJURY DIAGNOSES: - Unspecified sprain of right wrist, initial encounter - Migraine, unspecified, not intractable, without status migrainosus - Other retirement (current) drug therapy - Other and unspecified overexertion or strenuous movements or postures, initial encounter - Personal history of nicotine dependence 11/19/2020 12:[address] [place] TYPE: Emergency COMPLAINT: - R WRIST INJURY INPATIENT VISIT TRACKING (12 MO.) No inpatient visits to display in this time frame [email or web address]
[2021-11-17] MEDS ORDERED: SERTRALINE HCL50 MG PO (12:19)
[2021-11-17] MEDS ORDERED: CLONAZEPAM1 MG PO (12:19)
[2021-11-17] MEDS ORDERED: PENICILLIN V P500 MG PO (12:48)
== END 2021-11-17 12:58 | disposition home or self-care (01) ==
LOC: ED 12:12
DX: K08.89 Other specified disorders of teeth and supporting structures (principal); G43.909 Migraine, unspecified, not intractable, without status migrainosus; Z87.891 Personal history of nicotine dependence; Z79.899 Other long term (current) drug therapy
CPT/HCPCS: 64400; 99282-25

== ENCOUNTER 2023-06-23 14:18 | Emergency (ER) | payer OTHER ==
[~2023-06-23] VITALS: Ht 175.3 cm; Wt 121.6 kg
[~2023-06-23 14:18] MED LIST changes: +CLONAZEPAM1 MG PO; +PENICILLIN V P500 MG PO; +PREDNISONE20 MG PO; +SERTRALINE HCL50 MG PO; +SUBLOCADE300 MG/1.5 SUB-Q
--- OUTSIDE RECORDS SUMMARY | 2023-06-23 14:26 | XMS ---
PreManage Notification: TR PANG Security Insole Toe Snipping Machine Operator Events No recent Security Events currently on file CRITERIA MET - Group Notification CARE PROVIDERS DOMITILA FLORES Dentist: Personnel Manager 04/12/2019-Current PHONE: [phone] MARYLIN MOLINA [facility] 09/13/2018-Current PHONE: [phone] -[place]- Dentist: Personnel Manager [facility] PHONE: [phone] Care Guidelines exist for the following facilities: [facility] ( 09/13/2018 ) [place] VISIT COUNT (12 MO.) 1 BRYAN Jason TOTAL 1 NOTE: Visits indicate total known visits. ED/UCC VISIT TRACKING (12 MO.) 06/23/2023 14:[address] [place] TYPE: Emergency COMPLAINT: - R KNEE INJURY INPATIENT VISIT TRACKING (12 MO.) No inpatient visits to display in this time frame [email or web address]
[2023-06-23] MEDS ORDERED: CRUTCHES XX (15:03)
[2023-06-23] MEDS ORDERED: NAPROSYN500 MG PO (15:03)
[2023-06-23 15:14] VITALS: BP 160/68
== END 2023-06-23 15:15 | disposition home or self-care (01) ==
LOC: ED 14:18
DX: S80.01XA Contusion of right knee, initial encounter (principal); G43.909 Migraine, unspecified, not intractable, without status migrainosus; Z87.891 Personal history of nicotine dependence; W19.XXXA Unspecified fall, initial encounter
CPT/HCPCS: 73560; 73562; 80307; 81001; 85025; 85610; 87502; 99283-25; G0480; U0002

== ENCOUNTER 2023-10-16 11:16 | Emergency (ER) | payer OTHER ==
[~2023-10-16] VITALS: Ht 175.3 cm; Wt 128.3 kg
[~2023-10-16 11:16] MED LIST changes: +CRUTCHES XX; +NAPROSYN500 MG PO
--- OUTSIDE RECORDS SUMMARY | 2023-10-16 11:18 | XMS ---
PreManage Notification: TR PANG Security Propeller Mechanic Events No recent Security Events currently on file CRITERIA MET - Group Notification CARE PROVIDERS DOMITILA FLORES Dentist: Calender Worker Helper 04/12/2019-Current PHONE: [phone] MARYLIN MOLINA [facility] 09/13/2018-Current PHONE: [phone] -[place]- Dentist: Calender Worker Helper [facility] PHONE: [phone] Care Guidelines exist for the following facilities: [facility] ( 09/13/2018 ) [place] VISIT COUNT (12 MO.) 2 BRYAN Jason TOTAL 2 NOTE: Visits indicate total known visits. ED/UCC VISIT TRACKING (12 MO.) 10/16/2023 11:[address] [place] TYPE: Emergency COMPLAINT: - L KNEE PAIN 06/23/2023 14:[address] [facility] [place] TYPE: Emergency COMPLAINT: - R KNEE INJURY DIAGNOSES: - Contusion of right knee, initial encounter - Migraine, unspecified, not intractable, without status migrainosus - Pain in right knee - Personal history of nicotine dependence - Unspecified fall, initial encounter INPATIENT VISIT TRACKING (12 MO.) No inpatient visits to display in this time frame [id number]
[2023-10-16] MEDS ORDERED: MOTRIN IB200 M1 PO (11:30)
[2023-10-16] MEDS ORDERED: ACETAMINOPHEN 500 MG TAB PO ONE (12:15)
[2023-10-16] MEDS ORDERED: IBUPROFEN 600 MG TAB PO ONE (12:15)
[2023-10-16] MEDS ORDERED: HYDROCODON-ACE1 EA11 PO (13:07)
[2023-10-16] MEDS ORDERED: HYDROCODONE/ACETA 7.5/325 TAB PO ONE (13:15)
[2023-10-16 13:17] VITALS: BP 141/69
== END 2023-10-16 13:18 | disposition home or self-care (01) ==
LOC: ED 11:16
DX: S83.92XA Sprain of unspecified site of left knee, initial encounter (principal); M17.12 Unilateral primary osteoarthritis, left knee; X50.1XXA Overexertion from prolonged static or awkward postures, initial encounter; Z87.891 Personal history of nicotine dependence
CPT/HCPCS: 73560; 73700; 99284-25; A9270

== ENCOUNTER 2023-10-19 14:07 | Emergency (ER) | payer OTHER ==
[~2023-10-19] VITALS: Ht 175.3 cm; Wt 130.0 kg
[~2023-10-19 14:07] MED LIST changes: +HYDROCODON-ACE1 EA11 PO; +MOTRIN IB200 M1 PO
--- OUTSIDE RECORDS SUMMARY | 2023-10-19 14:08 | XMS ---
PreManage Notification: TR PANG Security Network Technical Analyst Events No recent Security Events currently on file CRITERIA MET - Group Notification - [facility] - 2 Visits in 30 Days CARE PROVIDERS DOMITILA FLORES Dentist: Director Labor Standards 04/12/2019-Current PHONE: [phone] TRACY ROCAEL [facility] 09/13/2018-Current PHONE: [phone] -[facility] Dentist: Director Labor Standards [facility] PHONE: [phone] -[place]- Dentist: Director Labor Standards [facility] PHONE: [phone] Care Guidelines exist for the following facilities: [facility] ( 09/13/2018 ) [place] VISIT COUNT (12 MO.) 3 [facility] TOTAL 3 NOTE: Visits indicate total known visits. ED/UCC VISIT TRACKING (12 MO.) 10/19/2023 14:[address] [place] TYPE: Emergency COMPLAINT: - HEART PALPATATIONS 10/16/2023 11:[address] [place] TYPE: Emergency COMPLAINT: - L KNEE PAIN 06/23/2023 14:[address] [place] TYPE: Emergency COMPLAINT: - R KNEE INJURY DIAGNOSES: - Contusion of right knee, initial encounter - Migraine, unspecified, not intractable, without status migrainosus - Pain in right knee - Personal history of nicotine dependence - Unspecified fall, initial encounter INPATIENT VISIT TRACKING (12 MO.) No inpatient visits to display in this time frame [email or web address]
[2023-10-19 14:46] LABS: BASOPHILS 0.7 % (0-2); EOSINOPHILS 2.1 % (0-6); HEMOGLOBIN 13.9 g/dL (12.0-18.0); LYMPHOCYTES 22.7 % (24-44); MCH 29.4 (27-36); MCV 86.5 fl (81-99); MONOCYTES 6.7 % (0-12); NEUTROPHILS 67.8 % (39-80); PLATELET COUNT 330 K/uL (140-440); RBC 4.74 M/ul (4.3-5.7); RDW 14.1 (10.5-15.0)
[2023-10-19] MEDS ORDERED: LORazepam 2 MG/ML VIAL IV ONE (15:00)
[2023-10-19 15:10] LABS: ALBUMIN 3.9 g/dL (3.4-5.0); ALBUMIN/GLOBULIN RATIO 0.89 (1.1-2.4); ANION GAP 18.5 (7-21); BILIRUBIN, TOTAL 0.6 ng/dL (0.2-1.0); BUN/CREATININE RATIO 17.85 (6.0-28.6); CALCIUM 9.5 mg/dL (8.5-10.1); CREATININE, SERUM 0.84 mg/dL (0.55-1.02); MAGNESIUM 1.8 mg/dL (1.8-2.4); POTASSIUM 3.5 mmol/L (3.5-5.1); PROTEIN, TOTAL 8.3 g/dL (6.4-8.2); TSH, 3RD GENERATION 1.313 uIU/mL (0.358-3.740)
[2023-10-19 15:49] LABS: BILIRUBIN, URINE NEGATIVE (negative); BLOOD/HGB, URINE SMALL (Negative); KETONE, URINE SMALL (Negative); LEUK ESTERASE, URINE NEGATIVE (negative); NITRITE, URINE POSITIVE (negative)
[2023-10-19 15:58] LABS: BACTERIA, URINE 4+ /hpf (negative); CASTS, URINE NONE SEEN \\lpf; COLLECTION TYPE, URINE CLEAN CATCH; CRYSTALS, URINE NONE SEEN (0-1+); EPITHELIAL CELLS, URINE SQUAMOUS 2+ /lpf (0-1+); REFLEX CULTURE, URINE No (No)
[2023-10-19 16:03] LABS: AMPHETAMINES, URINE NEGATIVE (NEGATIVE); BARBITURATES, URINE NEGATIVE (NEGATIVE); BENZODIAZEPINE, URINE NEGATIVE (NEGATIVE); BUPRENORPHINE, URINE NEGATIVE (NEGATIVE); CANNABINOID, URINE POSITIVE (NEGATIVE); COCAINE, URINE NEGATIVE (NEGATIVE); ECSTASY, URINE NEGATIVE (NEGATIVE); FENTANYL, URINE NEGATIVE (NEGATIVE); METHADONE, URINE NEGATIVE (NEGATIVE); OPIATES, URINE POSITIVE (NEGATIVE); OXYCODONE, URINE NEGATIVE (NEGATIVE); PHENCYCLIDINE, URINE NEGATIVE (NEGATIVE)
[2023-10-19 19:24] VITALS: BP 139/91
--- NOTE | 2023-10-20 00:54 | EKG ---
[facility] [address] [place] [address] Signed Atrial fibrillation Abnormal ECG When compared with ECG of 01-JUL-2023 06:32, Atrial fibrillation has replaced Sinus rhythm Confirmed by ADDY CRENSHAW MD ([id number]) on 10/20/2023 12:54:11 AM Electronically Signed By: ADDY CRENSHAW 10/20/23 0054 PATIENT NAME: TR PANG Electrocardiogram DATE OF : 81 PHYSICIAN: ADDY CRENSHAW REPORT #: [id number] REPORT IS CONFIDENTIAL AND NOT TO BE RELEASED WITHOUT AUTHORIZATION
== END 2023-10-19 19:27 | disposition home or self-care (01) ==
LOC: ED 14:07
PROVIDERS: Emergency Medicine
DX: I48.91 Unspecified atrial fibrillation (principal); F41.9 Anxiety disorder, unspecified; F32.A Depression, unspecified; Z87.891 Personal history of nicotine dependence
CPT/HCPCS: 36415; 80053; 80307; 81001; 83735; 84443; 84484; 84703; 85025; 93005; 93010; 96374; 99284-25; J2060

== ENCOUNTER 2024-02-02 10:45 | Emergency (ER) | payer OTHER ==
[~2024-02-02] VITALS: Ht 175.3 cm; Wt 121.6 kg
--- OUTSIDE RECORDS SUMMARY | 2024-02-02 10:53 | XMS ---
PreManage Notification: TR PANG Security Sink Maker Events No recent Security Events currently on file CRITERIA MET - Group Notification CARE PROVIDERS DOMITILA FLORES Dentist: Dairy Quality Assurance Officer 04/12/2019-Current PHONE: [phone] MARYLIN MOLINA [facility] 09/13/2018-Current PHONE: [phone] -[facility] Dentist: Dairy Quality Assurance Officer [facility] PHONE: [phone] Dahiana Riley- Dentist: Dairy Quality Assurance Officer [facility] PHONE: [phone] Care Guidelines exist for the following facilities: [facility] ( 09/13/2018 ) [place] VISIT COUNT (12 MO.) [address] [facility] TOTAL 4 NOTE: Visits indicate total known visits. ED/UCC VISIT TRACKING (12 MO.) 02/02/2024 10:47 [facility] [place] TYPE: Emergency COMPLAINT: - ABDOMINAL PAIN 10/19/2023 14:[address] [place] TYPE: Emergency COMPLAINT: - HEART PALPATATIONS DIAGNOSES: - Anxiety disorder, unspecified - Depression, unspecified - Palpitations - Personal history of nicotine dependence - Unspecified atrial fibrillation 10/16/2023 11:[address] [place] TYPE: Emergency COMPLAINT: - L KNEE PAIN DIAGNOSES: - Overexertion from prolonged static or awkward postures, initial encounter - Pain in left knee - Personal history of nicotine dependence - Sprain of unspecified site of left knee, initial encounter - Unilateral primary osteoarthritis, left knee 06/23/2023 14:[address] [place] TYPE: Emergency COMPLAINT: - R KNEE INJURY DIAGNOSES: - Contusion of right knee, initial encounter - Migraine, unspecified, not intractable, without status migrainosus - Pain in right knee - Personal history of nicotine dependence - Unspecified fall, initial encounter INPATIENT VISIT TRACKING (12 MO.) No inpatient visits to display in this time frame [id number]
[2024-02-02 12:21] LABS: BILIRUBIN, URINE NEGATIVE (negative); BLOOD/HGB, URINE NEGATIVE (Negative); KETONE, URINE NEGATIVE (Negative); LEUK ESTERASE, URINE NEGATIVE (negative); NITRITE, URINE NEGATIVE (negative); PH, URINE 5.5 (5-7)
[2024-02-02 12:21] LABS: BASOPHILS 0.6 % (0-2); EOSINOPHILS 1.4 % (0-6); HEMATOCRIT 35.4 % (35.0-50.0); HEMOGLOBIN 12.1 g/dL (12.0-18.0); LYMPHOCYTES 16.9 % (24-44); MCH 29.9 (27-36); MCHC 34.2 g/dl (30-36); MCV 87.5 fl (81-99); NEUTROPHILS 74.1 % (39-80); PLATELET COUNT 273 K/uL (140-440); RBC 4.05 M/ul (4.3-5.7); RDW 13.9 (10.5-15.0)
[2024-02-02 12:59] LABS: ALBUMIN 3.5 g/dL (3.4-5.0); ALBUMIN/GLOBULIN RATIO 0.88 (1.1-2.4); ANION GAP 12.8 (7-21); BILIRUBIN, TOTAL 0.4 ng/dL (0.2-1.0); BUN/CREATININE RATIO 23.94 (6.0-28.6); CALCIUM 8.9 mg/dL (8.5-10.1); CREATININE, SERUM 0.71 mg/dL (0.55-1.02); POTASSIUM 3.8 mmol/L (3.5-5.1); PROTEIN, TOTAL 7.5 g/dL (6.4-8.2)
[2024-02-02 13:42] LABS: ABO A; RH POSITIVE
[2024-02-02 14:00] VITALS: BP 120/56
== END 2024-02-02 14:00 | disposition home or self-care (01) ==
LOC: ED 10:45
PROVIDERS: Emergency Medicine
DX: O20.0 Threatened abortion (principal); Z3A.00 Weeks of gestation of pregnancy not specified; Z87.891 Personal history of nicotine dependence
CPT/HCPCS: 36415; 76801; 76817; 80053; 81003; 84702; 85025; 86900; 86901; 99284-25